=== PATIENT | male | born 1995 | race Hispanic/Latino ===

== ENCOUNTER 2019-08-10 20:33 | Inpatient (IN) | payer OTHER ==
[~2019-08-10] VITALS: Ht 167.6 cm; Wt 93.2 kg
[2019-08-10] MEDS ORDERED: NS 1,000 ML IV ONE (20:45)
[2019-08-10 21:14] LABS: HEMATOCRIT 52.8 % (42.0-52.0); HEMOGLOBIN 18.1 g/dl (13.5-17.5); MEAN CORPUSCULAR HEMOGLOBIN 30.1 pg (27.0-33.0); MEAN CORPUSCULAR HGB CONC 34.3 g/dl (32.0-36.5); MEAN CORPUSCULAR VOLUME 87.7 fl (80.0-96.0); PLATELET COUNT, AUTOMATED 262 10^3/uL (150-450); RED BLOOD COUNT 6.02 10^6/uL (4.30-6.10)
[2019-08-10 22:02] LABS: ACETAMINOPHEN LEVEL < 2.0 UG/ML (10.0-30.0); ALBUMIN 4.5 GM/DL (3.2-5.2); ALT/SGPT 28 U/L (12-78); BILIRUBIN,DIRECT 0.1 MG/DL (0.0-0.2); BILIRUBIN,TOTAL 0.4 MG/DL (0.2-1.0); BLOOD UREA NITROGEN 10 MG/DL (7-18); CALCIUM LEVEL 9.1 MG/DL (8.5-10.1); CARBON DIOXIDE LEVEL 29 MEQ/L (21-32); CHLORIDE LEVEL 105 MEQ/L (98-107); CPK CREATINE PHOSPHOKINASE 333 U/L (39-308); CREATININE FOR GFR 0.84 MG/DL (0.70-1.30); ETHYL ALCOHOL (ETHANOL) 0.299 % (0.000-0.010); GLOMERULAR FILTRATION RATE > 60.0 (>60); GLUCOSE, FASTING 98 MG/DL (70-100); POTASSIUM SERUM 3.9 MEQ/L (3.5-5.1); SALICYLATE LEVEL < 1.7 MG/DL (5.0-30.0); SODIUM LEVEL 143 MEQ/L (136-145); THYROID STIMULATING HORMONE 0.414 uIU/ML (0.358-3.740); TOTAL PROTEIN 8.7 GM/DL (6.4-8.2)
[2019-08-10 22:27] LABS: AMPHETAMINES LEVEL URINE NEGATIVE (NEGATIVE); BARBITURATES URINE NEGATIVE (NEGATIVE); BENZODIAZEPINES URINE NEGATIVE (NEGATIVE); CANNABINOIDS URINE NEGATIVE (NEGATIVE); COCAINE METABOLITE URINE NEGATIVE (NEGATIVE); METHADONE URINE NEGATIVE (NEGATIVE); OPIATES URINE NEGATIVE (NEGATIVE); PHENCYCLIDINE URINE NEGATIVE (NEGATIVE)
[2019-08-10] MEDS ORDERED: NICOTINE 21MG/24HR 1 EA TRANSDERMAL TD ONE (22:30)
[2019-08-11] MEDS ORDERED: chlorproMAZINE 25 MG TAB (Q0161) PO ONE (01:00)
--- NOTE | 2019-08-11 11:44 | ECGEPIP ---
[facility] - ED Test Date: 2019-08-10 Pat Name: JUAN LAM Department: Room: - Gender: Male Training Professional: IMTIAZ : 1995 Requested By: RAFA CISNEROS Order Number: [id number] Reading MD: Serge Cowan Measurements Intervals [place] Rate: 123 P: 48 [place]: 153 QRS: 0 QRSD: 97 T: 36 QT: 320 QTc: 459 Interpretive Statements SINUS TACHYCARDIA WITH OCCASIONAL VENTRICULAR PREMATURE COMPLEXES INDETERMINATE AXIS PROBABLE INFERIOR MYOCARDIAL INFARCTION, PROBABLY OLD DELAYED R WAVE PROGRESSION BASELINE ARTIFACT MAY AFFECT READING BASELINE WANDERING MAY AFFECT READING S1Q3T3 T CONSIDER PULMONARY EMBOLISM IN DIFFERENTIAL DIAGNOSIS NONSPECIFIC ST T WAVE CHANGES NO PRIOR ECG FOR COMPARISON CLINICAL CORRELATION ADVISED Electronically Signed on 08-11-2019 11:44:04 EDT by Serge Cowan
[2019-08-11] MEDS ORDERED: ACETAMINOPHEN TAB 650MG DOSE (2X325MG) PO PRN (11:45)
[2019-08-11] MEDS ORDERED: MAALOX 30 ML SUSP *UDC PO PRN (11:45)
[2019-08-11] MEDS ORDERED: MOM 30ML SUSPENSION UDC PO PRN (11:45)
[2019-08-11 14:01] VITALS: BP 136/80
--- NOTE | 2019-08-11 14:28 | HPEPDOC ---
General Date of Admission Aug 11, 2019 at 11:41 Date of Service: Aug 11, 2019 Chief Complaint The patient is a 24-year-old male admitted with a reason for visit of Depressive Disorder. Source: Patient Exam Limitations: No limitations Timing/Duration: Day(s) Severity: Moderate History of Present Illness HISTORY OF PRESENT ILLNESS: Patient is 24 years old male w/o significant past medical history, who was admitted in the hospital with major depressive episode versus adjustment disorder. He denied any cardiovascular problem, breathing problem, GI problem or dysuria. He denies fever, chills, nausea, vomiting, shortness of breath, palpitations, diarrhea or dysuria Home Medications No Active Prescriptions or Reported Meds Allergies Coded Allergies: kiwi (Verified Allergy, Severe, anaphylaxis, 08/11/19) Past Medical History Medical History None Family History Mother has diabetes and hypertension Social History * Smoker: current smoker Alcohol: occationally Drugs: denies A-FIB/CHADSVASC A-FIB History Current/History of A-Fib/PAF?: No Current PO Anticoag Therapy: No Review of Systems Constitutional: Denies: Chills, Fever Eyes: Denies: Pain, Vision change ENT: Denies: Head Aches Skin: Denies: Rash, Lesions Pulmonary: Denies: Dyspnea, Cough Cardiovascular: Denies: Chest Pain, Palpitations Gastrointestinal: Denies: Nausea, Vomiting Genitourinary: Denies: Dysuria, Frequency Hematologic: Denies: Bruising Endocrine: Denies: Polydipsia Musculoskeletal: Denies: Neck Pain, Back Pain Neurological: Denies: Weakness Psych: Reports: Anxiety, Depression Physical Examination General Exam: Positive: Alert, Cooperative Eye Exam: Positive: PERRLA, Conjunctiva & lids normal ENT Exam: Positive: Atraumatic Neck Exam: Positive: Supple; Negative: JVD Chest Exam: Positive: Clear to auscultation Heart Exam: Positive: Rate Normal Telemetry: Positive: No significant arrhythmia Abdomen Exam: Positive: Normal bowel sounds Extremity Exam: Negative: Clubbing Skin Exam: Positive: Nl turgor and temperature Neuro Exam: Positive: Normal Gait, Strength at 5/5 X4 ext, Cranial Nerves 3-12 NL Psych Exam: Positive: Mental status NL Vital Signs Vital Signs Date Time Temp Pulse Resp B/P (MAP) Pulse Ox O2 Delivery O2 Flow Rate FiO2 08/11/19 14:01 98.9 96 20 136/80 (98) 97 Room Air Laboratory Data Labs 24H Laboratory Tests 2 08/10/19 20:52: Nucleated Red Blood Cells % (auto) 0.0, Anion Gap 9, Glomerular Filtration Rate > 60.0, Calcium Level 9.1, Total Bilirubin 0.4, Direct Bilirubin 0.1, Aspartate Amino Transf (AST/SGOT) 23, Alanine Aminotransferase (ALT/SGPT) 28, Alkaline Phosphatase 98, Total Creatine Kinase 333H, Total Protein 8.7H, Albumin 4.5, Albumin/Globulin Ratio 1.07, Thyroid Stimulating Hormone (TSH) 0.414, Salicylates Level < 1.7L, Acetaminophen Level < 2.0L, Ethyl Alcohol Level 0.299H 08/10/19 21:50: Urine Opiates Screen NEGATIVE, Urine Methadone Screen NEGATIVE, Urine Barbiturates Screen NEGATIVE, Urine Phencyclidine Screen NEGATIVE, Urine Amphetamines Screen NEGATIVE, Urine Benzodiazepines Screen NEGATIVE, Urine Cocaine Metabolite Screen NEGATIVE, Urine Cannabinoids Screen NEGATIVE CBC/BMP Laboratory Tests 08/10/19 20:52 Assessment/Plan HISTORY OF PRESENT ILLNESS: Patient is 24 years old male w/o significant past medical history, who was admitted in the hospital with major depressive episode versus adjustment disorder. He denied any cardiovascular problem, breathing problem, GI problem or dysuria. He denies fever, chills, nausea, vomiting, shortness of breath, palpitations, diarrhea or dysuria Problems (1) Adjustment disorder with anxiety Status: Acute Problem Text: Treatment per psych team Plan / VTE VTE Prophylaxis Ordered?: No VTE Exclusion Mechanical Proph: Low Risk for VTE KILO LOVING DO Aug 11, 2019 14:28
[2019-08-11] MEDS: traZODone 50 MG TAB PO PRN (22:32)
[2019-08-12 06:41] VITALS: BP 132/67
--- NOTE | 2019-08-12 09:18 | MHHPEPDOC ---
[facility] History & Physical History and Physical DATE OF ADMISSION: Aug 11, 2019 at 11:41 LEGAL STATUS AT ADMISSION: . CHIEF COMPLAINT: . HISTORY OF PRESENT ILLNESS: Patient is a 24-year-old male, who PSYCHIATRIC REVIEW OF SYSTEMS: Affective: . Anxiety: . Trauma: . Psychosis: . Personality: . PAST PSYCHIATRIC HISTORY: Prior Psychiatric Disorder: . Outpatient Treatment: . Suicidal/Self injurious: [Denies]. Psychotropic Medication History: . ALLERGIES: Please see below. FAMILY PSYCHIATRIC HISTORY: [Denies]. SOCIAL HISTORY: Early Relations/development: . Sibling order: . Paternal relationships: . Education: . Occupational: . Legal: . Marital: . Economic: . Supports: . Abuse/trauma: . SUBSTANCE ABUSE HISTORY: . PAST MEDICAL/SURGICAL HISTORY: [None]. VITAL SIGNS: Please see below. MENTAL STATUS EXAMINATION: General appearance: Patient is a -year old male, who is . Speech: . Thought processes: . Thought content: . Abstract reasoning and computation: . Description of associations: . Description of abnormal or psychotic thoughts: . Judgment: . Insight: . Orientation: . Recent and remote memory: . Attention span and concentration: . Fund of knowledge: . Mood: "." Affect: . DIAGNOSES: 1. . 2. . 3. . ASSESSMENT: PROBLEM LIST: 1. . 2. . 3. . INITIAL TREATMENT PLAN: 1. Patient was admitted on a . 2. Complete history was obtained. 3. With patients permission, family will be contacted and database will be expanded. 4. Patients medication regimen will be reviewed and changed accordingly. 5. Patient will be provided with protected environment. 6. Patient will be treated with individual, group, and milieu therapies. 7. Patient will receive supportive psych-education. 8. Discharge planning will commence immediately. 9. Outpatient follow-up treatment will be strongly recommended. 10. The initial treatment plan will focus initially on: * Depression. * Risk for suicide. * Substance abuse. ESTIMATED LENGTH OF STAY: - DAYS. TIME SPENT COUNSELING AND COORDINATING INITIAL CARE: minutes. Vital Signs Vital Signs Date Time Temp Pulse Resp B/P (MAP) Pulse Ox O2 Delivery O2 Flow Rate FiO2 08/12/19 06:41 98.5 88 12 132/67 (88) 97 Room Air Medications No Active Prescriptions or Reported Meds Allergies Coded Allergies: gavino (Verified Allergy, Severe, anaphylaxis, 08/11/19) NATY MCPHERSON DO Aug 12, 2019 09:18
[2019-08-12 15:00] VITALS: BP 139/78
[2019-08-12] MEDS: buPROPion **XL** TABLET 150MG (WELLBUTRIN XL) PO SCH (15:40)
--- NOTE | 2019-08-12 19:19 | MHHPEPDOC ---
[facility] History & Physical History and Physical DATE OF ADMISSION: Aug 11, 2019 at 11:41 LEGAL STATUS AT ADMISSION: 9.39 Chief Complaint Concern for SI. 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 He presented to the ER from [place] due to concern for SI. The driving factors for his presentation revolve around ongoing relationship issues with his . He recently found out since returning from a deployment that his has been cheating on him and wants a divorce. Due to the stressors, he has increased alcohol intake. This led his to take him to [facility] so that he could sober up there. Apparently his also stated to the base that he had suicidal thoughts. However, Francisco denies that he ever made suicidal thoughts to her. He does endorse a history of alcohol use for which he has gone to AA in the past. While he endorses significant stress that has lead to a resumption of increased alcohol intake during the situation as well as vague depressive symptoms, he had a noticeable lack of a dysphoric affect on exam. In fact, he reported that he was "excited" that he will finally receive treatment for alcohol use and his relationship struggles. He also noted that he was "relieved" to have the marriage end due to the degree of stress it was causing him. Past Psychiatry History Denies a history of outpatient or inpatient psychiatric treatment. Denies any history of psychotropic treatment or psychotherapy. Denies a history of suicide attempts. Past Medical History Denies any prior diagnoses, surgeries, medications or drug allergies. Family, Social History (PFSH) Denies a family psychiatric history. He grew up in [place] and graduated high school. He joined the in order to financially support his . They have been for 4 years and have a 2-year-old son together. Uses chewing tobacco in addition to ETOH; denies all other substance use. Review of Systems 1. Constitutional: negative. 2. Eyes: negative. 3. Ears/Nose/Mouth/Throat: negative. 4. Cardiovascular: negative. 5. Respiratory: negative. 6. Gastrointestinal: negative. 7. Genitourinary: negative. 8. Muscular: negative. 9. Integumentary: negative. 10. Neurological: negative. 11. Endocrine: negative. 12. Hematologic/Lymphatic: negative. 13. Allergies/Immune: negative. 14. Psychiatric: Denies SI/HI/AVH/delusional thinking. Physical Exam Vitals: see below General appearance: Appears staged age with good hygiene and grooming; dressed in seasonally-appropriate attire MSK: Normal Speech: WNL for rate, volume, fluency, and amount Thought process: linear, organized, and goal-directed Thought content: No SI/HI/AVH/delusional thinking elicited Description of patient's judgement and insight: fair Mood: " I'm excited." Affect: Euthymic. 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 The main drivers of his presentation were recently finding out that his cheated on him and wants a divorce. This is also in the context of recently returning from a deployment. While the stress of their relationship has led him to increase his alcohol intake, he noticeably has a euthymic affect. He denies that any suicidal remarks were made to his ; however, if they were made, this was in the setting of intoxication. Diagnoses: Alcohol use disorder, unspecified. Adjustment disorder, with anxious distress. Plan: Observation for 1 more day to confirm safety for discharge is warranted, with a likely discharge tomorrow. Bupropion XL 150mg daily for tobacco cessation and mood Consultation Time Spent: 70 minutes, with greater than 50% of time spent in counseling/coordination of care. INITIAL TREATMENT PLAN: 1. Patient was admitted on a 9.39 2. Complete history was obtained. 3. With patients permission, family will be contacted and database will be expanded. 4. Patients medication regimen will be reviewed and changed accordingly. 5. Patient will be provided with protected environment. 6. Patient will be treated with individual, group, and milieu therapies. 7. Patient will receive supportive psych-education. 8. Discharge planning will commence immediately. 9. Outpatient follow-up treatment will be strongly recommended. 10. The initial treatment plan will focus initially on: * Depression. * Risk for suicide. * Substance abuse. ESTIMATED LENGTH OF STAY: 1-2 DAYS. Vital Signs Vital Signs Date Time Temp Pulse Resp B/P (MAP) Pulse Ox O2 Delivery O2 Flow Rate FiO2 08/12/19 15:00 98.2 101 18 139/78 (98) 100 08/12/19 06:41 Room Air Medications No Active Prescriptions or Reported Meds Allergies Coded Allergies: kiwi (Verified Allergy, Severe, anaphylaxis, 08/11/19) GME ATTESTATION GME ATTESTATION My faculty preceptor for this patient encounter was physically present during the encounter and was fully available. All aspects of the patient interview, examination, medical decision making process, and medical care plan development were reviewed and approved by the faculty preceptor. The faculty preceptor is aware and concurs with the plan as stated in the body of this note and will attest to such by his/her cosignature. JOSE FANG MD Aug 12, 2019 19:19
[2019-08-12] MEDS: traZODone 50 MG TAB PO PRN (20:37)
[2019-08-13 06:18] VITALS: BP 143/79
[2019-08-13] MEDS: buPROPion **XL** TABLET 150MG (WELLBUTRIN XL) PO SCH (08:26)
[2019-08-13] MEDS ORDERED: TRAZ-252 PO (09:59)
[2019-08-13] MEDS ORDERED: BUPR150T3 PO (09:59)
[2019-08-13] MEDS ORDERED: NICO1KIT TOP (10:00)
--- NOTE | 2019-08-13 13:54 | MHDSPDOC ---
[facility] Discharge Summary Discharge Summary DATE OF ADMISSION: Aug 11, 2019 at 11:41 DATE OF DISCHARGE: 08/13/19 Discharge Diagnoses 1. Adjustment disorder with mixed features. 2. Alcohol use disorder, unspecified. 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 The driving factors for his presentation revolve around ongoing relationship issues with his . He recently found out since returning from a deployment that his has been cheating on him and wants a divorce. Due to the stressors, he has increased alcohol intake. This led his to take him to [facility] so that he could sober up there. Apparently his also stated to the [facility] that he had suicidal thoughts. However, Francisco denies that he ever made suicidal thoughts to her. He does endorse a history of alcohol use for which he has gone to AA in the past. While he endorses significant stress that has lead to a resumption of increased alcohol intake during the situation as well as vague depressive symptoms, he had a noticeable lack of a dysphoric affect on exam. In fact, he reported that he was "excited" that he will finally receive treatment for alcohol use and his relationship struggles. He also noted that he was "relieved" to have the marriage end due to the degree of stress it was causing him. Consultants Routine medical screening. Treatment and Progress Bupropion extended release 150 mg daily and as needed, trazodone for sleep were both initiated with good effect. The patient denied side effects from these medications. He reported improvement in both mood and sleep and reported alleviation of suicidal thoughts. Discharge Assessment On the day of discharge, the patient reported improvement in mood and reported alleviation of suicidal ideation. He also denied HI/AVH/delusional thinking. It has been arranged that the patient will stay with a friend of his given the psychosocial circumstances he is in. The patient at the time of discharge did not meet criteria for involuntary admission/extension due to having a normal mental status exam, fair insight into the situation, They are engaged in the discharge process, as well as being friendly and amenable in behavioral control and havent been engaging in any observed concerning behavior or ideation recently. They decline voluntary extension/admission at this time and must be discharged in good chayo, as Im unable to make a case for holding the patient against their will. They may have historical risk factors of admissions and other interactions with psychiatry however, those are not modifiable from a clinical perspective. The patient will need to be discharged in good chayo. Physical Exam Vitals: see below General appearance: Appears staged age with good hygiene and grooming; dressed in seasonally-appropriate attire MSK: Normal Speech: WNL for rate, volume, fluency, and amount Thought process: linear, organized, and goal-directed Thought content: No SI/HI/AVH/delusional thinking elicited Description of patient's judgement and insight: fair Mood: "pretty good" Affect: Euthymic. Follow Up Appointments The discharge planners have worked to arrange outpatient follow-up. During the pre-discharge meeting, the patient was evaluated for further issues of lethality in order to address them fully before discharge. They worked on safety planning with the patient's family members to ensure that the patient will have a safe and effective discharge. Time Spent 30 minutes, with greater than 50% of time spent counseling and coordination of care. Vital Signs/I&Os Vital Signs Date Time Temp Pulse Resp B/P (MAP) Pulse Ox O2 Delivery O2 Flow Rate FiO2 08/13/19 06:18 97.9 89 16 143/79 (100) 08/12/19 15:00 100 08/12/19 06:41 Room Air Medications Scheduled Bupropion Hcl (Bupropion Xl) 150 Mg Tab.er.24h, 150 MG PO DAILY for mood for 7 Days, #7 Nicotine (Nicotine Patch) 1 Each Patch.dysq, 1 PATCH TOP DAILY for smoking cessation for 30 Days, #30 Scheduled PRN Trazodone HCl (Trazodone HCl) 50 Mg Tablet, 50 MG PO QHSP PRN for INSOMNIA for 7 Days, #7 Allergies Coded Allergies: kiwi (Verified Allergy, Severe, anaphylaxis, 08/11/19) GME ATTESTATION GME ATTESTATION My faculty preceptor for this patient encounter was physically present during the encounter and was fully available. All aspects of the patient interview, examination, medical decision making process, and medical care plan development were reviewed and approved by the faculty preceptor. The faculty preceptor is aware and concurs with the plan as stated in the body of this note and will attest to such by his/her cosignature. JOSE FANG MD Aug 13, 2019 13:54
== END 2019-08-13 14:00 | disposition home or self-care (01) | DRG 882 ==
LOC: EDBD 20:33 → M ED 20:33 → M ED INP 08-11 11:41 → M PSY 08-11 13:10
PROVIDERS: ADMIT Psychiatry & Neurology Addiction Medicine; ATTEND Psychiatry & Neurology Addiction Medicine
DX: F43.23 Adjustment disorder with mixed anxiety and depressed mood (principal); F10.10 Alcohol abuse, uncomplicated; Z63.5 Disruption of family by separation and divorce; Z91.018 Allergy to other foods